=== PATIENT | female | born 1990 | race Caucasian/White ===

== ENCOUNTER → 2023-12-04 14:27 | Outpatient (REF) | payer OTHER, SELFPAY | LOC: PNTC 14:27 | PROVIDERS: ATTENDING PHYSICIAN Nurse Practitioner Family | DX: Z87.51 Personal history of pre-term labor (principal); O09.819 Supervision of pregnancy resulting from assisted reproductive technology, unspecified trimester | CPT/HCPCS: 76801; 76813 ==

== ENCOUNTER → 2024-01-02 09:23 | Outpatient (REF) | payer OTHER, SELFPAY | LOC: PNTC 09:23 | PROVIDERS: ATTENDING PHYSICIAN Obstetrics & Gynecology | DX: O42.90 Premature rupture of membranes, unspecified as to length of time between rupture and onset of labor, unspecified weeks of gestation (principal); O09.819 Supervision of pregnancy resulting from assisted reproductive technology, unspecified trimester | CPT/HCPCS: 76805; 76817 ==

== ENCOUNTER → 2024-01-15 08:34 | Outpatient (REF) | payer OTHER, SELFPAY | LOC: PNTC 08:34 | PROVIDERS: ATTENDING PHYSICIAN Obstetrics & Gynecology | DX: O42.90 Premature rupture of membranes, unspecified as to length of time between rupture and onset of labor, unspecified weeks of gestation (principal); O09.819 Supervision of pregnancy resulting from assisted reproductive technology, unspecified trimester | CPT/HCPCS: 76817 ==

== ENCOUNTER → 2024-01-30 09:58 | Outpatient (REF) | payer OTHER, SELFPAY | LOC: PNTC 09:58 | PROVIDERS: ATTENDING PHYSICIAN Obstetrics & Gynecology | DX: O09.812 Supervision of pregnancy resulting from assisted reproductive technology, second trimester (principal); O42.90 Premature rupture of membranes, unspecified as to length of time between rupture and onset of labor, unspecified weeks of gestation | CPT/HCPCS: 76811 ==

== ENCOUNTER → 2024-02-12 15:27 | Outpatient (REF) | payer OTHER, SELFPAY | LOC: PNTC 15:27 | PROVIDERS: ATTENDING PHYSICIAN Obstetrics & Gynecology | DX: Z36.86 Encounter for antenatal screening for cervical length (principal) | CPT/HCPCS: 76815; 76817 ==

== ENCOUNTER → 2024-02-28 11:39 | Outpatient (REF) | payer BC, SELFPAY | LOC: PNTC 11:39 | PROVIDERS: ATTENDING PHYSICIAN Obstetrics & Gynecology | DX: Z36.86 Encounter for antenatal screening for cervical length (principal) | CPT/HCPCS: 76816; 76817 ==

== ENCOUNTER → 2024-04-22 09:30 | Outpatient (REF) | payer BC, SELFPAY | LOC: PNTC 09:30 | PROVIDERS: ATTENDING PHYSICIAN Obstetrics & Gynecology | DX: Z87.51 Personal history of pre-term labor (principal) | CPT/HCPCS: 76816 ==

== ENCOUNTER 2024-04-30 22:18 | Observation (INO) | payer BC, SELFPAY ==
[2024-04-30 22:46] VITALS: BP 130/82; BMI 25.1
[2024-04-30 22:49] LABS: Urine Albumin Negative (Neg - Trace); Urine Bilirubin Negative (Negative); Urine Character Clear (Clear); Urine Color Yellow; Urine Glucose Negative (Negative); Urine Ketone 1+ (Negative); Urine Leukocyte Negative (Negative); Urine Nitrite Negative (Negative); Urine Occult Blood Negative (Negative); Urine Specific Gravity 1.015 (<1.030); Urine Urobilinogen Negative (Neg - 1+); Urine pH 6.5 (5.0-9.0)
== END 2024-04-30 23:22 | disposition home or self-care (01) ==
LOC: LDRP 22:18
PROVIDERS: ADMITTING PHYSICIAN Obstetrics & Gynecology; FAMILY PHYSICIAN Physician Assistant Medical
DX: O46.93 Antepartum hemorrhage, unspecified, third trimester (principal); Z3A.33 33 weeks gestation of pregnancy; O09.813 Supervision of pregnancy resulting from assisted reproductive technology, third trimester; O09.213 Supervision of pregnancy with history of pre-term labor, third trimester
CPT/HCPCS: 81003; 87086; G0378

== ENCOUNTER → 2024-05-20 10:34 | Outpatient (REF) | payer BC, SELFPAY | LOC: PNTC 10:34 | PROVIDERS: ATTENDING PHYSICIAN Obstetrics & Gynecology | DX: Z87.51 Personal history of pre-term labor (principal) | CPT/HCPCS: 59025; 76816 ==

== ENCOUNTER 2024-05-23 20:34 | Observation (INO) | payer BC, SELFPAY ==
[2024-05-23 21:08] VITALS: BP 117/79; BMI 26.3
== END 2024-05-23 21:36 | disposition home or self-care (01) ==
LOC: LDRP 20:34
PROVIDERS: ADMITTING PHYSICIAN Student in an Organized Health Care Education/Training Program
DX: O36.8130 Decreased fetal movements, third trimester, not applicable or unspecified (principal); Z3A.36 36 weeks gestation of pregnancy; O09.813 Supervision of pregnancy resulting from assisted reproductive technology, third trimester; O09.213 Supervision of pregnancy with history of pre-term labor, third trimester; O26.23 Pregnancy care for patient with recurrent pregnancy loss, third trimester
CPT/HCPCS: 59025; 36415; 86850; 86900; 86901; G0378

== ENCOUNTER → 2024-05-27 09:30 | Outpatient (REF) | payer BC, SELFPAY | LOC: PNTC 09:30 | PROVIDERS: ATTENDING PHYSICIAN Obstetrics & Gynecology | DX: Z87.51 Personal history of pre-term labor (principal) | CPT/HCPCS: 59025; 76815 ==

== ENCOUNTER → 2024-06-03 09:29 | Outpatient (REF) | payer BC, SELFPAY | LOC: PNTC 09:29 | PROVIDERS: ATTENDING PHYSICIAN Obstetrics & Gynecology | DX: O60.10X0 Preterm labor with preterm delivery, unspecified trimester, not applicable or unspecified (principal) | CPT/HCPCS: 59025; 76815 ==

== ENCOUNTER 2024-06-09 01:24 | Inpatient (IN) | payer BC, SELFPAY ==
[2024-06-09 01:36] VITALS: BP 134/86; BMI 26.7
--- NOTE | 2024-06-09 01:38 | HPS.HSE ---
Family Physician
-
Family Physician: Georgina Brar, DO
Chief Complaint
-
leakage of fluid
History of Present Illness
HPI: Patient is a 34yo @39.2 who presents with complaints of a large gush of clear fluid. She says she woke up in a large amount of fluid. She continues to leak. She denies vaginal bleeding. +FM She has started feeling contractions since she
arrived to the hospital.
complications
- IVF
- Hx PPROM @35wks
- Hx C/S breech, desires RCS
- Rubella non-immune
PMHx: infertility
Meds:
Surghx: IVF, hysteroscopy, wisdom teeth, C/Sx1
All: lavendar
Socialhx: denies tobacco, etoh or illicit drug use
Famhx: non-contributory
OBHx: C/S @35wks breech, PPROM, ectopic x2 (treated w/ MTX), SABx2
labs: Blood type AB+, Ab neg, Pap NILM, Rubella non-immune, RPR non-reactive, UCx neg, HBsAg neg, HIV neg, 1hr 117, GBS positive
FHTs: 125 baseline/moderate variability/no accelerations/+early decelerations
[place]: ctx q5min
Medical History
Past Medical History
Past Medical History: Reports Other
Additional Past Medical History:
infertility
Past Surgical History: Reports
Additional Past Surgical History:
hysteroscopy, wisdom teeth, IVF
Social History
Tobacco: Non-smoker
Alcohol: None
Drug: None
Family History
Family History: Not pertinent
Allergies / Home Medications
Allergies reflects when Allergies were last updated in [facility].
Home Medications with original date entered in [facility]
Allergy/Medication List:
All: lavendar, skin glue
Review of Systems
-
A 12 point ROS was completed and negative except as noted: Yes
Physical Exam
Physical Exam
General: Well Developed
HEENT: NormoCephalic
Respiratory: Clear
Cardiac: Regular Rhythm
Genito-urinary: Other (grossly ruptured for clear fluid)
Neuro: Awake and Alert
Psych: Calm
Impression/Plan
-
IMPRESSION:
Patient is a 34yo @39.2 spontaneous rupture of membranes, repeat section declines TOLAC
PLAN:
- Patient grossly ruptured for clear fluid. She has a history of one prior section and declines TOLAC. She has completed her family status and desires permanent sterilization. Plan to proceed with repeat section. Consents
previously signed in the office. Patient is aware bilateral salpingectomy is a permanent procedure and she will no longer be able to conceive children naturally.
- Proceed with repeat section and bilateral salpingectomy
- Ancef 2g and azithromycin 500mg ordered for antibiotic prophylaxis
- Anesthesia notified
[2024-06-09] MEDS: LR 1000 IV (01:45)
[2024-06-09] MEDS: ANCEF 10 IV (01:52)
[2024-06-09] MEDS: BICITRA 30 ML PO (01:52)
[2024-06-09] MEDS: TYLENOL 1000 MG PO (01:52)
[2024-06-09 02:02] LABS: Hematocrit 34.7 % (37.0-47.0); Hemoglobin 12.2 g/dL (12.0-16.0); Mean Corp Hgb Conc. 35.2 g/dL (33.0-37.0); Mean Corpuscular Hgb 31.1 pg (27.0-31.0); Mean Corpuscular Volume 88.5 fL (81.0-99.0); Mean Platelet Volume 10.6 fL (7.4-10.4); Platelet Count 186 10^3/uL (130-400); Red Blood Cell Count 3.92 10^6/uL (4.20-5.40); White Blood Cell Count 11.5 10^3/uL (4.8-10.8)
[2024-06-09] MEDS: ZITHROMAX INFUSION 250 IV (03:00)
--- NOTE | 2024-06-09 04:33 | OR.RPT ---
Operative Report
Operative Report
Date of procedure: 06/09/2024
Preop diagnosis: IUP @39.2, SROM, prior C/Sx1, declines TOLAC, desires permanent sterilization
Postop diagnosis: same
Surgeon: Maykel
Anesthesia: Epidural, Katin
Procedure: Repeat low transverse section, bilateral salpingectomy
Findings: viable male born at 0316, Apgars 8/9. Very thin lower uterine segment. Bladder adherent to lower uterine segment taken down with Metzenbaum scissors and blunt dissection. Right paratubal cyst. Small left ovary. Normal appearing
uterus, right ovary and bilateral fallopian tubes. Extension on right side of hysterotomy. Hysterotomy raw appearing at the end of the procedure, Surgicel placed.
QBL: 510mL
Complications: none
Garner catheter draining clear urine before and after the procedure.
Indication: Patient is a 34yo at 39.2 weeks who presented to Labor and Delivery with complaints of leakage of fluid. Patient was found to be grossly ruptured for clear fluid. She has a history of one prior section for breech
presentation and declines a trial of labor after section. She has completed her family status and desires permanent sterilization. She is aware it is a permanent procedure and she will no longer be able to conceive children naturally.
Risks, benefits, and alternatives were discussed and consents were previously signed. Anesthesia was notified.
Procedure: Patient was taken to the operating room where epidural anesthesia was administered and found to be adequate. 2g of Ancef and 500mg of azithromycin were given for infection prophylaxis. The abdomen was prepped with ChloraPrep. The patient
was draped in the normal sterile fashion. She was placed in the dorsal supine position with a left lateral tilt. A Pfannenstiel incision was made with a 10 blade and carried down to the fascia with a scalpel. Hemostasis achieved with Bovie. The
fascia was incised and dissected laterally with Orellana scissors. The superior aspect of the fascia was grasped with Yaron clamps. The underlying rectus fascia was sharply dissected with Orellana scissors. In a similar fashion the inferior aspect of the
fascia was elevated with Yaron clamps and the rectus muscle was dissected off with Orellana scissors. The rectus muscles were down the midline to the level of the pubic symphysis with manual dissection. The peritoneum was bluntly entered and
extended with manual traction.
Zepeda retractor and bladder blade were placed revealing good visualization of the bladder. The bladder was adhered to the lower uterine segment. A bladder flap was developed with Metzenbaum scissors. The adhesions between the bladder and lower
uterine segment were taken down with Metzenbaum scissors and manual dissection. A thin lower uterine segment was noted. The lower uterine segment was incised with a scalpel. Clear amniotic fluid noted at entry into the cavity. The uterine incision
was extended bluntly with lateral and upward traction.
The fetus was in cephalic presentation. The head was brought to the hysterotomy. Gentle fundal pressure was applied and the head delivered. The rest of the body delivered without difficulty. Delayed cord clamping was performed. The infant was
handed off to the it technical specialist. IV oxytocin was started to facilitate uterine contractions. The placenta was expressed with fundal massage and gentle traction. The uterus was exteriorized. Allis clamps were placed at the apices of the hysterotomy.
The inside of the uterus was wiped with a lap sponge to assure complete removal of placental membranes. Fundal massage was performed and uterus noted to be firm. There was an extension on the right side of the hysterotomy. The uterine incision was
closed with 0 Vicryl in a running locked fashion. There was oozing from the left corner of the hysterotomy and 2 figure of eights were placed with 0 Vicryl to achieve hemostasis. The hysterotomy was inspected and noted to be hemostatic. Attention
was turned to the right fallopian tube. There was a right paratubal cyst. The right fallopian tube was followed out to the fimbriated end with [place]. The fallopian tube was removed in a stepwise fashion along the mesosalpinx using the Voyant
device. Hemostasis was noted at the salpingectomy site. The procedure was repeated on the left side and the left fallopian tube was removed using the Voyant device. The salpingectomy sites were noted to be hemostatic. Bilateral fallopian tubes were
sent to pathology for evaluation. The uterus was placed back in the abdomen. Blood clots and fluid were wiped out of the abdomen and pelvis with moist laparotomy sponges. The salpingectomy sites were inspected and noted to be hemostatic. The
hysterotomy was examined and there was oozing from the right side of the hysterotomy. Figure of eights were placed with 0 Vicryl to achieve hemostasis. There was oozing from the serosa inferior to the hysterotomy and Bovie cautery was used. The
hysterotomy was raw appearing and Surgicel was placed. The hysterotomy was examined again and was hemostatic.
The rectus muscles were inspected and noted to be hemostatic. Oozing from the peritoneal edge was noted and Bovie cautery used to achieve hemostasis. The fascial layer was closed in a running continuous fashion using 0 Vicryl. The subcutaneous
tissue was copiously irrigated and any small bleeding vessels were cauterized with Bovie cautery. The subcutaneous tissue was reapproximated in a running continuous fashion with 2-0 Plain. The skin was closed with 4-0 Vicryl in a subcuticular
fashion. The incision was covered with steri strips and a pressure dressing. The patient tolerated the procedure well. All sponge and instrument counts were correct times two. The patient was taken to the recovery room in stable condition.
[2024-06-09] MEDS: PITOCIN 30 UNITS/NSS 500 ML IV ×2 (04:40→07:02)
[2024-06-09] MEDS: TORADOL 15 MG IV ×4 (05:40→23:34)
[2024-06-09] MEDS: TYLENOL 650 MG PO (10:17)
[2024-06-09] MEDS: PRENATAL PLUS 1 TABLET PO (10:17)
[2024-06-09] MEDS: MYLICON 80 MG PO (10:18)
--- NOTE | 2024-06-09 10:26 | W.PN.ANS.POP ---
Anesthesia Post Operative
- Anesthesia Post Op Note
Vital Signs Stable-See Nursing Note: Yes
Airway Patent: Yes
Adequate Pain Control: Yes
Change in Mental Status: No
Current Postoperative Nausea & Vomiting: No
Anesthesia Complications: No
General Anesthetic Recall: No
Unplanned Admission: No
Post Op Hydration Adequate: Yes
- -
Pt resting, spoke with RN- pt c/o low back pain with PRN analgesics offered by RN for pain control. Doing well at time of post op visit.
[2024-06-09] MEDS: FLEXERIL 5 MG PO (16:04)
[2024-06-09] MEDS: ZYRTEC 10 MG PO (16:04)
[2024-06-09] MEDS: PERCOCET 5/325 1 TABLET PO (21:04)
[2024-06-10] MEDS: FLEXERIL 5 MG PO (00:04)
[2024-06-10 05:27] LABS: Hematocrit 31.6 % (37.0-47.0); Hemoglobin 10.6 g/dL (12.0-16.0); Mean Corp Hgb Conc. 33.5 g/dL (33.0-37.0); Mean Corpuscular Hgb 30.7 pg (27.0-31.0); Mean Corpuscular Volume 91.6 fL (81.0-99.0); Mean Platelet Volume 10.6 fL (7.4-10.4); Platelet Count 168 10^3/uL (130-400); Red Blood Cell Count 3.45 10^6/uL (4.20-5.40); Red Cell Dist. Width 13.2 % (11.5-14.5); White Blood Cell Count 8.3 10^3/uL (4.8-10.8)
[2024-06-10] MEDS: PRENATAL PLUS 1 TABLET PO (07:40)
[2024-06-10] MEDS: MOTRIN 600 MG PO ×3 (07:41→20:04)
[2024-06-10] MEDS: SENOKOT-S 1 TABLET PO (07:41)
[2024-06-10] MEDS: ZYRTEC 10 MG PO (07:41)
[2024-06-10] MEDS: PERCOCET 5/325 1 TABLET PO ×4 (07:41→20:05)
--- NOTE | 2024-06-10 09:15 | W.PN.ANES ---
Anesthesia Note
- -
06/10/24 09:15
Ask to see patient for neck and back pain. 34 yo female s/p early Monday morning with difficult regional anesthesia placement. Surgery performed under epidural after several attempts at spinal. Pt now complain or back/neck/shoulder pain.
Pain does not seem postural in nature, pt able to ambulate to rest room. Pt also reports sinus congestion. Pain improved with Percocet PO. Pt states motor and sensory in upper and lower extremities intact. Pt pain may be secondary to positioning and
placing of regional anesthetic. I expect resolution of symptoms in 3 - 5 days. Recommend limited activity and continue non steroidal therapy as tolerated. At this time doubt PDPH but would continue to monitor for possible development. Spoke with
Melchor states no indication of wet tap during placement of spinal/epidural. Please let us know if there are any changes.
[2024-06-10] MEDS: FLEXERIL 10 MG PO ×2 (09:23→17:29)
[2024-06-11] MEDS: PERCOCET 5/325 1 TABLET PO ×5 (00:03→20:23)
[2024-06-11] MEDS: MOTRIN 600 MG PO ×4 (02:20→20:23)
[2024-06-11] MEDS: FLEXERIL 10 MG PO ×2 (02:20→10:19)
[2024-06-11] MEDS: PRENATAL PLUS 1 TABLET PO (07:55)
[2024-06-11] MEDS: ZYRTEC 10 MG PO (07:55)
[2024-06-11 12:18] LABS: Syphilis/T. pallidum Ab Reflex Negative (Negative)
[2024-06-12] MEDS: PERCOCET 5/325 1 TABLET PO ×3 (01:17→13:19)
[2024-06-12] MEDS: FLEXERIL 10 MG PO ×2 (01:17→10:35)
[2024-06-12] MEDS: MOTRIN 600 MG PO ×2 (04:34→10:34)
[2024-06-12] MEDS: SENOKOT-S 1 TABLET PO (08:53)
[2024-06-12] MEDS: PRENATAL PLUS 1 TABLET PO (08:53)
[2024-06-12] MEDS: ZYRTEC 10 MG PO (08:55)
[2024-06-12] MEDS: M-M-R II 0.5 ML SC (11:04)
--- NOTE | 2024-06-12 11:47 | W.DS.TRANS ---
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
-
Discharge Instructions:
Discharge Diagnosis/Procedures rcs, bilat salpingectomies
Instructions:
Stand-Alone Forms: LDRP Delivery
Changes to Home Medications: No
Discharge Medications:
DC Medications w/original date entered in [facility]
prenat.vits,rufino,ipt-gswy-ycrhh 1 tab PO DAILY 04/30/24
cyclobenzaprine 10 mg tablet 10 mg PO Q8HPRN PRN neck pain #30 tabs 06/12/24
ibuprofen 600 mg tablet 600 mg PO Q6HPRN PRN cramps #90 tabs 06/12/24
oxycodone-acetaminophen 5 mg-325 mg tablet 1 tab PO Q4HPRN PRN moderate pain #10 tabs 06/12/24
Home Medication Changes
Pending Results: Yes
Additional Pending Results:
pathology
Total time spent discharging patient (in min): 30 min
== END 2024-06-12 12:00 | disposition home or self-care (01) | DRG 785 ==
LOC: LDRP 01:24
PROVIDERS: Obstetrics & Gynecology; ADMITTING PHYSICIAN Student in an Organized Health Care Education/Training Program
PROC: 0UT70ZZ Resection of Bilateral Fallopian Tubes, Open Approach (ICD-10-PCS; 2024-06-09)
PROC: 10D00Z1 Extraction of Products of Conception, Low, Open Approach (ICD-10-PCS; 2024-06-09)
PROC: 3E0134Z Introduction of Serum, Toxoid and Vaccine into Subcutaneous Tissue, Percutaneous Approach (ICD-10-PCS; 2024-06-12)
DX: O42.02 Full-term premature rupture of membranes, onset of labor within 24 hours of rupture (principal); O34.211 Maternal care for low transverse scar from previous cesarean delivery; Z3A.39 39 weeks gestation of pregnancy; Z37.0 Single live birth; O99.824 Streptococcus B carrier state complicating childbirth; N83.8 Other noninflammatory disorders of ovary, fallopian tube and broad ligament; O34.83 Maternal care for other abnormalities of pelvic organs, third trimester; N97.9 Female infertility, unspecified; M54.9 Dorsalgia, unspecified; M54.2 Cervicalgia; R09.81 Nasal congestion; Z82.49 Family history of ischemic heart disease and other diseases of the circulatory system; Z80.3 Family history of malignant neoplasm of breast; Z80.41 Family history of malignant neoplasm of ovary; Z30.2 Encounter for sterilization; Z23 Encounter for immunization
CPT/HCPCS: 88302; 58605; 85027; 86780; 86850; 86900; 86901; 90707; 97162

== ENCOUNTER 2024-06-14 16:04 | Observation (INO) | payer BC, SELFPAY ==
[2024-06-14 16:06] VITALS: BP 127/84; BMI 24.3
[2024-06-14 16:52] LABS: Hematocrit 38.1 % (37.0-47.0); Hemoglobin 13.4 g/dL (12.0-16.0); Mean Corp Hgb Conc. 35.2 g/dL (33.0-37.0); Mean Corpuscular Volume 88.2 fL (81.0-99.0); Mean Platelet Volume 9.4 fL (7.4-10.4); Platelet Count 217 10^3/uL (130-400); Red Blood Cell Count 4.32 10^6/uL (4.20-5.40); Red Cell Dist. Width 12.7 % (11.5-14.5); White Blood Cell Count 6.1 10^3/uL (4.8-10.8)
[2024-06-14 17:12] LABS: ALT (SGPT) 17 U/L (0-35); AST (SGOT) 19 U/L (14-36); Albumin 4.2 g/dl (3.5-5.0); Alkaline Phosphatase 114 U/L (38-126); Blood Urea Nitrogen 9 mg/dl (7-17); Calcium 9.3 mg/dl (8.4-10.2); Carbon Dioxide 19 mmol/L (22-30); Chloride 111 mmol/L (98-107); Estimated Creatinine Clearance > 125 ml/min; Glucose 78 mg/dl (70-99); Potassium 3.8 mmol/L (3.5-5.1); Sodium 141 mmol/L (135-145); Total Bilirubin 0.9 mg/dl (0.2-1.3); Total Protein 6.7 g/dl (6.3-8.2); eGFR > 60.00
[2024-06-14] MEDS: MOTRIN 600 MG PO (17:54)
[2024-06-14] MEDS: NEURONTIN 300 MG PO (18:22)
== END 2024-06-14 20:00 | disposition home or self-care (01) ==
LOC: LDRP 16:04
PROVIDERS: ADMITTING PHYSICIAN Student in an Organized Health Care Education/Training Program
DX: O90.89 Other complications of the puerperium, not elsewhere classified (principal); R51.9 Headache, unspecified
CPT/HCPCS: 80053; 85027; G0378

== ENCOUNTER 2024-06-16 13:40 | Emergency (ER) | payer BC, SELFPAY ==
[2024-06-16] VITALS (9 sets, daily range): BP systolic 115–153; BP diastolic 74–111
--- NOTE | 2024-06-16 14:16 | ED.GENMED ---
History of Present Illness
General
Chief Complaint: Headache
Source: patient
Exam Limitations: none
Time Seen by Provider: 06/16/24 14:00
History of Present Illness
History of Present Illness:
See MDM
Past History
Past History
ED Past Medical History: None
ED Past Surgical History:
Social History
Tobacco: Non-smoker
Alcohol: None
Phy Exam
Physical Exam
Physical Exam:
See MDM
Course
Orders/Labs/Results
Orders:
Orders
06/16/24 13:55
Electrocardiogram (*1) Urgent
Reason for Study: Hypertension, Benign
EKG- Treatment ONCE
06/16/24 14:16
CT Head W/o Iv Contrast Urgent
Comment:
Reason For Exam: headache
0.9% Sodium Chloride 1000 ml [Nss] 1,000 ml IV BOLUS
06/16/24 14:17
Complete Blood Count/With Diff Urgent
Comprehensive Metabolic Panel Urgent
Abnormal Lab Results
06/16/24
14:17
Chloride 111 H mmol/L
(98-107)
Carbon Dioxide 20 L mmol/L
(22-30)
Creatinine 0.5 L mg/dL
(0.6-1.0)
Glucose 107 H mg/dl
(70-99)
Total Protein 6.0 L g/dl
(6.3-8.2)
06/16/24 14:17
06/16/24 14:17
Vital Signs
Initial and Last Documented VS:
Initial Vital Signs
Temp Pulse Resp BP Pulse Ox
97.8 F 114 17 140/105 98
06/16/24 13:44 06/16/24 13:44 06/16/24 13:44 06/16/24 13:44 06/16/24 13:44
Last Documented Vital Signs
Temp Pulse Resp BP Pulse Ox
97.8 F 64 16 127/75 99
06/16/24 13:44 06/16/24 15:33 06/16/24 15:33 06/16/24 15:33 06/16/24 15:33
MDM/Problems Addressed
Differential Diagnosis Includes:
HPI and MDM Narrative:
34-year-old female presenting for evaluation of persistent headache. Patient had a 7 days ago. She states anesthesia had her curled for 45 minutes to perform the epidural. She states they poked her numerous amounts of times. Since her
discharge, she has been dealing with persistent headaches. She has followed up and seen anesthesiology and they do not believe this to be a true spinal headache. Patient was placed on Tylenol and gabapentin. She states yesterday was the worst but
today she is actually feeling a lot better. On my exam, she is well-appearing nontoxic. Her story is concerning for possible spinal headache given that symptoms are better when she lays flat and worse when she stands up. She has no red flags to
suspect meningismus or infection. Her incision is clean and intact. The epidural site is also clean and intact. Given the persistent symptoms, will obtain basic blood work and CT head. Her blood pressure is 150/100 but this is likely
reactive due to her discomfort. Will obtain blood work to rule out any evidence of preeclampsia
Physical exam
General: Well appearing and non-toxic
HEENT: protecting airway. Pupils equal reactive.
Neck: No meningismus, supple
CV: No evidence of cyanosis
Resp: No accessory muscle use
Abd: Non-distended. incision clean and intact
Extremities: No deformities. No pitting edema
Neuro: alert
Psych: Normal affect
Skin: Intact
Problems Addressed including Acute and Chronic Conditions affecting care:
1. Headache
Acuity: acute
Prognosis: stable
Details: Potentially tension versus migraine. Will obtain CT head given persistent nature. We did discuss the possibility of spinal headache. Patient states she would not want to blood patch anyway
Updates
Initial hypertension improved without intervention. Blood work without concerning abnormalities to suggest preeclampsia
CT does show loss of CSF which does correlate to her symptoms. Case discussed with anesthesiology Dr. Langley. Since patient is well-appearing on my exam and patient is functional at home, she does not necessarily need an emergent blood patch, per
anesthesiologist. Patient is also hesitant after she was informed about the complications from the anesthesiologist. Anesthesiology is suggesting that IR perform the procedure if needed
Case discussed with interventional radiology and patient given the number to schedule the procedure if she changes her mind. We discussed continuing the fluids and caffeine. We discussed that she can return anytime to have the blood patch
performed if needed
Differential Diagnosis (but not limited to): Spinal headache, tension headache, migraine, preeclampsia
Testing considered: CT angiogram of head
Drug therapy (if applicable): OTC meds, please see d/c instruction regarding Rx drugs
Amount and/or Complexity of Data Reviewed
Clinical info obtained from: Patient
External data reviewed: N/A
Labs I independently reviewed (but not limited to): WBC normal
Radiology: the CT scan was personally and independently reviewed. In addition, official CT report reviewed.
Pulse Ox: not hypoxic
EKG independently reviewed: Sinus rhythm, normal axis, no STEMI
Thread Cutter: N/A
Critical Care: N/A
Risk of Complication:
Social Determinants of health: Good social support
Discussed with other providers: POLYMER CHEMIST, anesthesiology, interventional radiologist
Escalation of Care includes Admit/Obs: After being observed in the Emergency Department, pt stable for discharge.
Occasional wrong word or 'sound a like' substitutions may have occurred due to the inherent limitations of voice recognition software. Read the chart carefully and recognize, using context, where substitutions have occurred.
*Critical Care Note
Total Time (30-74mins, 75-104mins- exclusive of procedures): Not Applicable
ED Attending Note
-
Portions of this chart may have been created with voice recognition software.� Occasional wrong word or��sound alike� substitutions may have occurred due to the inherent limitations of voice recognition software.
Discharge Plan
Departure
Patient Disposition: Home (Routine Discharge)
Date of Disposition: 06/16/24
Time of Disposition: 16:54
Patient with high blood pressure during this ER visit?: No
Discharge Problem:
Spinal headache
Prescriptions:
No Action
ibuprofen 600 mg Tablet
600 mg PO Q6HPRN PRN (Reason: cramps) Qty: 90 0RF
Tylenol
650 mg PO Q4HPRN PRN (Reason: H/A)
gabapentin 300 mg Capsule
300 mg PO TID Qty: 30 0RF
ibuprofen 600 mg Tablet
600 mg PO Q6HPRN PRN (Reason: moderate pain) Qty: 1 0RF
Referrals:
Ivette Rodriguez PA [Family Provider] -
Activity Restrictions/Additional Instructions:
As we discussed, the CT shows a decrease in spinal fluid which is consistent with a spinal headache. Continue fluids and caffeine. Please call the interventional radiologist to schedule a blood patch if you change your mind. The number is
[phone] (option 1 for scheduling). If the headache is persistent, you can always return to the emergency department to have this done.
Interventions
Interventions:
*Risk Screen - Suicide Last Done: 06/16/24 13:49
*General Assessment Last Done: 06/16/24 13:47
*Neglect/Abuse Screening Last Done: 06/16/24 13:47
*ED- Fall Risk Assessment Last Done: 06/16/24 14:06
*ED COVID-19 Vaccine History Last Done: 06/16/24 13:47
ED- Neurological Assessment Last Done: 06/16/24 14:06
Discharge Date and Time
Print Language: CROATIAN
[2024-06-16] MEDS: NSS 1000 IV (14:27)
[2024-06-16 14:31] LABS: % Basophils 0.3 % (0-2); % Eosinophils 1.4 % (0-6); % Immature Granulocytes 0.2 % (0-0.5); % Lymphocytes 30.3 % (20.5-51.1); % Monocytes 4.3 % (1.7-9.3); % Neutrophils 63.5 % (42.2-75.2); Absolute Eosinophils 0.1 10^3/uL (0-0.7); Absolute Monocytes 0.3 10^3/uL (0.1-0.6); Absolute Neutrophils 4.2 10^3/uL (1.4-6.5); Hematocrit 37.1 % (37.0-47.0); Hemoglobin 12.9 g/dL (12.0-16.0); Mean Corp Hgb Conc. 34.8 g/dL (33.0-37.0); Mean Corpuscular Hgb 30.7 pg (27.0-31.0); Mean Corpuscular Volume 88.3 fL (81.0-99.0); Mean Platelet Volume 9.4 fL (7.4-10.4); Nucleated Red Blood Cells % 0 %; Platelet Count 232 10^3/uL (130-400); Red Cell Dist. Width 12.8 % (11.5-14.5); White Blood Cell Count 6.6 10^3/uL (4.8-10.8)
[2024-06-16 14:55] LABS: Potassium 3.8 mmol/L (3.5-5.1)
[2024-06-16 14:58] LABS: ALT (SGPT) 17 U/L (0-35); AST (SGOT) 19 U/L (14-36); Albumin 3.5 g/dl (3.5-5.0); Alkaline Phosphatase 92 U/L (38-126); Blood Urea Nitrogen 9 mg/dl (7-17); Calcium 9.4 mg/dl (8.4-10.2); Carbon Dioxide 20 mmol/L (22-30); Chloride 111 mmol/L (98-107); Glucose 107 mg/dl (70-99); Sodium 140 mmol/L (135-145); Total Bilirubin 0.6 mg/dl (0.2-1.3); eGFR > 60.00
== END 2024-06-16 17:19 | disposition home or self-care (01) ==
LOC: EMR 13:40
PROVIDERS: EMERGENCY PHYSICIAN Student in an Organized Health Care Education/Training Program; FAMILY PHYSICIAN Physician Assistant Medical
DX: O90.89 Other complications of the puerperium, not elsewhere classified (principal); R51.9 Headache, unspecified; R03.0 Elevated blood-pressure reading, without diagnosis of hypertension
CPT/HCPCS: 96360; 99284; 70450; 80053; 85025; 93005

== ENCOUNTER 2024-06-17 16:33 | Day surgery (SDC) | payer BC, SELFPAY ==
[2024-06-17] VITALS (7 sets, daily range): BP systolic 123–139; BP diastolic 77–91; BMI 24.0
== END 2024-06-17 19:51 | disposition home or self-care (01) ==
LOC: PACU 16:33
PROVIDERS: ATTENDING PHYSICIAN Anesthesiology
DX: O89.4 Spinal and epidural anesthesia-induced headache during the puerperium (principal)
CPT/HCPCS: 62273